=== PATIENT | female | born 1980 | race Asian ===

== ENCOUNTER 2020-11-07 22:28 | Emergency (ER) | payer OTHER ==
--- NOTE | 2020-11-07 23:22 | ED Physician Documentation ---
PD HPI Fall - Stated complaint Stated Complaint: FALL/CONFUSION - Chief complaint Chief Complaint: Trauma Ch/Bk - History obtained from History obtained from: Patient - History of Present Illness Mechanism of injury: Lost balance Fall distance: 5 to 10ft Where injury occurred: Home Timing - onset: Enter time (21:00), Today Injury(ies) location: Head, Right Lower Extremity Quality of pain: Pain Associated symptoms: AMS. No: LOC Worsens with: Movement Contributing factors: No: Anticoagulated, Intoxicated Recently seen: Not recently seen - Additional information Additional information: patient fell from a ladder at approximately 9 PM tonight. She fell approximately 7 feet and landed on her back on the ground outdoors. Her head actually struck a rubber mat thus softening the blow. Denies loss of consciousness, although family notes that she was initially confused. Her confusion only lasted a few minutes and has completely resolved. Her chief complaint is right hip pain. She also notes mild generalized headache. She has been able to bear weight on both lower extremities although it is painful with weight-bearing on the right Review of Systems Eyes: denies: Loss of vision, Decreased vision Musculoskeletal: reports: Joint pain (right hip), Pain with weight bearing (RLE). denies: Neck pain, Back pain Neurologic: reports: Confused (transiently (resolved)), Headache, Head injury. denies: Focal weakness, Numbness, LOC PD PAST MEDICAL HISTORY - Past Medical History Past Medical History: No - Present Medications Home Medications: Ambulatory Orders Medication Instructions Recorded Confirmed No Known Home Medications 11/07/20 11/07/20 - Allergies Allergies/Adverse Reactions: Allergies Allergy/AdvReac Type Severity Reaction Status Date / Time No Known Drug Allergies Allergy Verified 11/07/20 22:53 - Social History Does the pt smoke?: No Smoking Status: Never smoker Does the pt drink ETOH?: No Does the pt have substance abuse?: No - POLST Patient has POLST: No PD ED PE NORMAL - Vitals Vital signs reviewed: Yes - General General: Alert and oriented X 3, No acute distress, Well developed/nourished - HEENT HEENT: Atraumatic, PERRL, EOMI - Neck Neck: No bony TTP - Cardiac Cardiac: RRR, No murmur - Respiratory Respiratory: No respiratory distress, Clear bilaterally - Abdomen Abdomen: Soft, Non tender - Extremities Extremities: No deformity, Normal ROM s pain, No edema, Other (mild TTP right posterolateral hip) Results - Vitals Vitals: Oxygen O2 Source Room air - Rads (name of study) CT head Radiology: Prelim report reviewed, See rad report ritht hip xrays Radiology: Prelim report reviewed, See rad report PD MEDICAL DECISION MAKING - ED course Complexity details: reviewed results, re-evaluated patient, considered differential, d/w patient, d/w family Departure - Departure Disposition: 01 Home, Self Care Clinical Impression: Fall, Head injury, Contusion of hip Condition: Good Instructions: ED Head Injury Closed, ED Contusion Hip Discharge Date/Time: 11/08/20 02:29
[2020-11-07] MEDS ORDERED: IBUPROFEN 600 MG TABLET PO STA (23:39)
[2020-11-08 02:30] VITALS: BP 108/78
--- NOTE | 2020-11-08 07:09 | CT Report ---
PROCEDURE: HEAD WO INDICATIONS: head injury, confusion TECHNIQUE: Noncontrast 4.5 mm thick angled axial sections acquired from the foramen magnum to the vertex. For r adiation dose reduction, the following was used: automated exposure control, adjustment of mA and/or kV according to patient size. COMPARISON: None. FINDINGS: Image quality: Excellent. CSF spaces: Basal cisterns are patent. No extra-axial fluid collections. Ventricles are normal in size and shape. Brain: No midline shift. No intracranial masses or hemorrhage. Zelaya-white matter interface is norm al. Skull and face: Calvarium and visualized facial bones are intact, without suspicious lesions. Sinuses: Visualized sinuses and mastoids are clear. IMPRESSION: No acute intracranial disease process. Reviewed by: Nettie Jose MD, PhD on 11/08/2020 7:08 AM PDT Approved by: Nettie Jose MD, PhD on 11/08/2020 7:08 AM PDT Station ID: [id number]
--- NOTE | 2020-11-08 09:34 | XRAY Report ---
PROCEDURE: Hip w/Pelvis 2-3V RT INDICATIONS: fall, right hip pain TECHNIQUE: AP pelvis with lateral view(s) of the right hip(s). COMPARISON: None. FINDINGS: Bones: No fractures or dislocations. Pelvic ring appears intact. No suspicious bony lesions. Soft tissues: The visualized bowel gas pattern is normal. No suspicious soft tissue calcifications. IMPRESSION: . No visualized acute fracture or dislocation. However, occult injury cannot be excluded . Recommend short interval imaging follow-up in 7-10 days as clinically indicated for additional eval uation. Reviewed by: Petrona Fragoso MD on 11/08/2020 9:33 AM PDT Approved by: Petrona Fragoso MD on 11/08/2020 9:33 AM PDT Station ID: [id number]
== END 2020-11-08 02:29 | disposition home or self-care (01) ==
LOC: ED 22:28
DX: S09.90XA Unspecified injury of head, initial encounter (principal); S70.00XA Contusion of unspecified hip, initial encounter; W11.XXXA Fall on and from ladder, initial encounter; Y92.009 Unspecified place in unspecified non-institutional (private) residence as the place of occurrence of the external cause
CPT/HCPCS: 70450; 73502; 99282; 99284; A9270